=== PATIENT | female | born 1965 | race Caucasian/White ===

== ENCOUNTER 2021-03-08 17:05 | Emergency (ER) | payer OTHER ==
[~2021-03-08] VITALS: Ht 170.2 cm; Wt 77.1 kg
[2021-03-08] MEDS ORDERED: LAMOTRIGINE250 MG PO (17:37)
[2021-03-08] MEDS ORDERED: keppra PO (17:37)
[2021-03-08] MEDS ORDERED: PROZAC20 M1 PO (17:38)
[2021-03-08] MEDS ORDERED: LORAZEPAM 1 MG T1 MG PO (17:38)
[2021-03-08 18:01] LABS: ABSOLUTE NEUTROPHILS 2.7 thou/uL (1.4-8.2); BASOPHILS 0.8 % (0.0-2.0); EOSINOPHILS 3.5 % (0.0-3.0); HEMATOCRIT 37.6 % (37.0-47.0); HEMOGLOBIN 12.5 gm/dL (12.0-15.0); LYMPHOCYTES 38.8 % (24.0-44.0); MCH 30.7 pg (26.0-34.0); MCHC 33.2 g/dL (28.0-37.0); MCV 92.7 fL (80.0-100.0); MONOCYTES 8.1 % (1.0-8.0); PLATELET COUNT 251 thou/uL (150-400); POLYS 48.8 % (36.0-66.0); RBC 4.06 mil/uL (4.20-5.00); RDW 13.1 % (10.5-14.5); WBC 5.6 thou/uL (4.0-11.0)
[2021-03-08 18:13] LABS: CALCIUM 8.3 mg/dL (8.5-10.1); CREATININE 0.9 mg/dL (0.6-1.0); POTASSIUM 3.7 mmol/L (3.5-5.1)
[2021-03-08 18:15] LABS: APTT 22.2 Seconds (24.5-32.8); INR 0.92; PROTIME 10.1 Seconds (10.5-12.1)
[2021-03-08] MEDS ORDERED: COMPAZINE10 MG PO (20:34)
[2021-03-08 20:48] VITALS: BP 114/74
== END 2021-03-08 20:45 | disposition home or self-care (01) ==
LOC: ER 17:05
PROVIDERS: Emergency Medicine
DX: R51.9 Headache, unspecified (principal); R20.2 Paresthesia of skin; F17.210 Nicotine dependence, cigarettes, uncomplicated